=== PATIENT | female | born 1960 | race Caucasian/White ===

== ENCOUNTER 2024-01-26 15:47 | Emergency (ER) | payer OTHER, SELFPAY ==
[2024-01-26] VITALS (17 sets, daily range): BP systolic 109–150; BP diastolic 71–83; PULSE 54–67; RESP 18; TEMP 36.6; O2SAT 95–98; BMI 21.9
--- NOTE | 2024-01-26 15:48 | ED_ITS ---
HPI - General Adult General Date Seen: 01/26/24 Chief complaint: Chest Pain Stated complaint: Tightness in chest/throat Time Seen by Provider: 01/26/24 15:48 History of Present Illness HPI narrative: 63-year-old female with history of hypothyroidism (Synthroid), and dyslipidemia (currently managing with diet and exercise) who presents to the ER today for an episode of substernal chest discomfort and squeezing along with squeezing in her neck. She has been healthy and well lately. No recent symptoms of chest pain, shortness of breath, dyspnea, or any other anginal symptoms. She was at home today working on organizing some papers and cleaning on an office. She was sitting on the floor when she began to have some discomfort in her chest and up into her neck. She has a felt like a squeezing. It was quite intense. She was worried she might be having a heart attack so she when out to notify her . They decided to come here. Pain began around 3:[address] here the pain has gotten better and has now gone from her chest. She had mi nimal ongoing squeezing in her neck at the time of triage but now that, too, has resolved. No other symptoms with this. No palpitations. No shortness of breath. No nausea. No dizziness. No back pain. No abdominal pain. The pain did not radiate up to her jaw or down to her legs or down her arms. No recent travel. No leg swelling. No history of DVT or PE. She does have a family history of vascular disease, in particular her mother, who of strokes. The patient reports that she had a history of mitral valve prolapse with a murmur when she was younger but that murmurs been gone for some years. Related Data Home Medications ?Medication ?Instructions ?Recorded ?Confirmed levothyroxine 50 mcg tablet mcg PO 01/26/24 Allergies Allergy/AdvReac Type Severity Reaction Status Date / Time Sulfa (Sulfonamide Allergy Verified 01/26/24 15:51 Antibiotics) PFSH PFS Social History Smoking Status: Never smoker Do you use any of these nicotine containing products: None How often do you have a drink containing alcohol: never How often do you have six or more drinks on one occasion: Never AUDIT-C Alcohol total score: 0 Non-prescribed substance use: denies use service: No Exam Narrative: Exam Narrative: Constitutional: Appears well-developed and well-nourished. Alert. Conversant. Non toxic. HENT: Head: Atraumatic. Nose: Nose normal. Mouth/Throat: Oral mucosa is clear and moist. no trismus. Pharynx normal. Tonsils symmetric. No tonsillar enlargement, erythema, or exudate. Eyes: Conjunctivae normal. EOM normal. Pupils equal, round, and reactive to light. No scleral icterus. Neck: Normal range of motion. Neck supple. No tracheal deviation present. No JVD Cardiovascular: Normal rate, regular rhythm. No gallop. No friction rub. No murmur heard. Symmetric radial and PT artery pulses Pulmonary/Chest: Effort normal. No stridor. No respiratory distress. No wheezes. No rales. No rhonchi . No tenderness. Abdominal: Soft. Bowel sounds normal. No distension. No mass. No tenderness. No rebound. No guarding. Musculoskeletal: RUE: Normal range of motion. No tenderness. No deformity LUE: Normal range of motion. No tenderness. No deformity RLE: Normal range of motion. No edema. No tenderness. No deformity LLE: Normal range of motion. No edema. No tenderness. No deformity Lymph: No cervical adenopathy. Neurological: Alert and oriented to person, place, and time. Normal strength. CN II-VII intact. No sensory deficit. GCS eye subscore is 4. GCS verbal subscore is 5. GCS motor subscore is 6. Normal coordination Skin: Skin is warm and dry. No rash noted. No pallor. Normal capillary refill. Psychiatric: Normal mood. Normal affect. Const: Vital Signs, click to edit/add: Vital Signs - 24 hr 01/26/24 15:52 01/26/24 16:00 01/26/24 16:02 Temperature 97.9 F Pulse Rate 65 65 Pulse Rate [Pulse Oximeter] 60 Respiratory Rate 18 Blood Pressure 135/81 Blood Pressure [Ri ght Upper Arm] 150/80 H Pulse Oximetry 96 97 96 Oxygen Delivery Me thod Room Air 01/26/24 16:15 01/26/24 16:50 01/26/24 16:53 Temperature Pulse Rate 59 L 63 64 Pulse Rate [Pulse Oximeter] Respiratory Rate Blood Pressure 127/75 Blood Pressure [Ri ght Upper Arm] Pulse Oximetry 98 97 96 Oxygen Delivery Me thod 01/26/24 17:00 01/26/24 17:02 01/26/24 17:15 Temperature Pulse Rate 67 63 58 L Pulse Rate [Pulse Oximeter] Respiratory Rate Blood Pressure 120/71 Blood Pressure [Ri ght Upper Arm] Pulse Oximetry 97 95 97 Oxygen Delivery Me thod 01/26/24 17:30 01/26/24 17:32 01/26/24 17:45 Temperature Pulse Rate 55 L 60 57 L Pulse Rate [Pulse Oximeter] Respiratory Rate Blood Pressure 109/71 Blood Pressure [Ri ght Upper Arm] Pulse Oximetry 95 96 97 Oxygen Delivery Me thod 01/26/24 18:00 01/26/24 18:02 01/26/24 18:15 Temperature Pulse Rate 57 L 56 L 61 Pulse Rate [Pulse Oximeter] Respiratory Rate Blood Pressure 122/75 Blood Pressure [Ri ght Upper Arm] Pulse Oximetry 97 98 98 Oxygen Delivery Me thod 01/26/24 18:30 01/26/24 18:32 Temperature Pulse Rate 56 L 54 L Pulse Rate [Pulse Oximeter] Respiratory Rate Blood Pressure 115/83 Blood Pressure [Ri ght Upper Arm] Pulse Oximetry 97 97 Oxygen Delivery Me thod Course Vital Signs Vital signs: Initial Vital Signs Temperature 97.9 F 01/26/24 15:52 Temperature Source Temporal Artery Scan 01/26/24 15:52 Pulse Rate 60 01/26/24 15:52 Pulse Rhythm Regular 01/26/24 15:52 Respiratory Rate 18 01/26/24 15:52 Blood Pressure 150/80 H 01/26/24 15:52 Blood Pressure Mean 103 01/26/24 15:52 Blood Pressure Position Supine 01/26/24 15:52 Pulse Oximetry 96 01/26/24 15:52 Oxygen Delivery Method Room Air 01/26/24 15:52 Vital Signs Temperature 97.9 F 01/26/24 15:52 Pulse Rate 60 01/26/24 15:52 Respiratory Rate 18 01/26/24 15:52 Blood Pressure 150/80 H 01/26/24 15:52 Pulse Oximetry 96 01/26/24 15:52 Oxygen Delivery Method Room Air 01/26/24 15:52 Temperature 97.9 F 01/26/24 15:52 Pulse Rate 54 L 01/26/24 18:32 Respiratory Rate 18 01/26/24 15:52 Blood Pressure 115/83 01/26/24 18:32 Pulse Oximetry 97 01/26/24 18:32 Oxygen Delivery Method Room Air 01/26/24 15:52 Medications Administered Medications: Discontinued Medications Generic Name Dose Route Start Last Admin Trade Name Abbey PRN Reason Stop Dose Admin Aspirin 162 mg 01/26/24 16:15 01/26/24 16:25 Aspirin 81 Mg Tab.Chew PO 01/26/24 16:16 162 mg ONCE ONE Administration Medical Decision Making MDM Narrative Medical decision making narrative: This patient presents to the ER today for evaluation of chest pain that began this afternoon while she was sitting on the floor cleaning a room. He was not really associated with exertion. No other recent episodes of chest pain or other significant anginal symptoms. Patient has a history of high cholesterol (currently being managed by diet and exercise) and a family history of mother with stroke but no other traditional cardiovascular risk factors. Differential was broad. No evidence of palpitations, syncope or other cardiac dysrhythmia. We considered possible ACS, however workup with EKG and serial troponin is negative. HEART score is 3. Given time since onset of symptoms, we did check delta troponins and they are both normal. I do not think the patient needs to be admitted for further sets of enzymes. EKG shows no evidence for pericarditis. Clinical presentation not suggestive of myocarditis. Chest x-ray shows no evidence for pneumonia, pneumothorax, pulmonary edema, pleural effusion, rib fracture, cardiomegaly. Mediastinum is normal on the x-ray. The patient has no ripping or tearing pain through to the back and has symmetric pulses on exam, no other acute neuro findings so I doubt aortic dissection. Risk of radiation and contrast exposure would outweigh the benefit of CT angiogram. We considered PE for this patient. There is no pleuritic component to the chest pain, tachycardia, hypoxia, or associated shortness of breath. The pain was self limited. No recent travel. No leg swellings or other symptoms of DVT. At this point I do not think she needs workup with CT PA due to risk of radiation and contrast. D-dimer testing would be more likely deal to false-positive than a true positive. No wheezing or bronchospasm to suggest COPD/asthma. No signs of chest wall cellulitis, shingles, injury. I wonder if this may have been an episode of esophageal spasm. With reasonable clinical confidence, I think the patient is safe for outpatient follow up. Discussed return precautions. Questions answered. Patient voices comfort with the plan. Triage blood pressure was 150/80. Came down without treatment to 115/83. Suspect initial blood pressure was related to anxiety and stress during the triage process. Lab Data Labs: Lab Results 01/26/24 01/26/24 01/26/24 Range/Units 16:15 16:30 18:30 WBC 9.78 (4.50-11.00) K/uL RBC 4.67 (4.00-5.20) m/uL Hgb 13.5 (12.0-16.0) gm/dL Hct 40.5 (33.0-51.0) % MCV 87 (80-100) fL MCH 29 (26-34) pg MCHC 33 (32-36) gm/dL RDW Coeff of Kimani 12.4 (11.5-15.5) % Plt Count 294 (140-440) K/uL Neut % (Auto) 64.8 (42.0-72.0) % Lymph % (Auto) 26.4 (20-44) % [place] % (Auto) 7.1 (0.0-11.0) % Eos % (Auto) 1.3 (0.0-7.0) % Baso % (Auto) 0.3 (0.0-3.0) % Neut # (Auto) 6.34 (1.7-7.0) K/uL Lymph # (Auto) 2.58 (0.90-2.90) K/uL Ulster # (Auto) 0.70 (0.00-0.90) K/UL Eos # (Auto) 0.13 (0.00-0.50) K/uL Baso # (Auto) 0.03 (0.00-0.30) K/uL Abs Immat Gran (auto) 0.01 (0.00-0.30) K/uL Imm/Tot Granulo (auto) 0.1 % Sodium 140 (135-149) mmol/L Potassium 3.6 (3.6-5.1) mmol/L Chloride 106 (96-114) mmol/L Carbon Dioxide 25 (20-32) mmol/L Anion Gap 9 (7-15) mEq/L BUN 15 (7-30) mg/dL Creatinine 0.6 (0.5-1.5) mg/dL Estimated Creat Clear 44.95 Estimated GFR 100 ml/min Glucose 114 (60-115) mg/dL Calcium 9.3 (8.4-10.6) mg/dL POC Troponin I 0.00 L 0.00 L (0.01-0.04) ng/ml Imaging Data Chest x-ray: Attestation: I have reviewed the pertinent imaging results. Radiologist's impression: Impression No acute cardiopulmonary process. ECG Data Attestation: I personally reviewed and interpreted this ECG as follows: Interpretation: Normal sinus rhythm Rate: 68 WI: 168 QRS axis: Normal axis. No pathologic Q-waves. ST segment/T wave: No ST segment elevation or depression. Nonspecific T-wave flattening in lead V1, V2, V3. QTc: 455 Discharge Plan Discharge Clinical Impression: Chest pain Patient Disposition: Home, Self-Care Condition: Stable Instructions: Chest Pain (DC) Additional Instructions: As we discussed, so far the workup for your heart looks reassuring. If you have any worsening symptoms or recurring episodes of chest pain, please come back to the ER right away. Even if you are doing well, please recheck with your regular doctor in the next couple of weeks to recheck your cholesterol and do an ER follow-up visit. Prescriptions: No Action levothyroxine 50 mcg tablet PO Follow Up/Referrals: Provider,Not a Local [Primary Care Provider] - Stand Alone Forms: [employer] Info Instructions
--- NOTE | 2024-01-26 16:16 | CRLHL7_ITS ---
For Patients: As a result of the Century Cures Act, medical imaging exams and procedure reports are released immediately into your electronic medical record. You may view this report before your referring provider. If you have questions, please contact your health care provider. Indication chest and neck discomfort Technique Two view(s) of the chest Comparison None Findings The cardiomediastinal silhouette and pulmonary vasculature are unremarkable. There is no focal airspace consolidation, pleural effusion, or pneumothorax. No displaced fractures. Impression No acute cardiopulmonary process. Dictated by Taras Benavides MD @ 01/26/2024 6:07:57 PM (Electronically Signed)
[2024-01-26] MEDS: ASPIRIN 81 MG TAB.CHEW 162 MG PO (16:25)
[2024-01-26 16:55] LABS: Basophils Absolute Auto 0.03 K/uL (0.00-0.30); Basophils Percent Auto 0.3 % (0.0-3.0); Eosinophils Absolute Auto 0.13 K/uL (0.00-0.50); Eosinophils Percent Auto 1.3 % (0.0-7.0); Hematocrit 40.5 % (33.0-51.0); Hemoglobin* 13.5 gm/dL (12.0-16.0); Immature Granulocytes Abs Auto 0.01 K/uL (0.00-0.30); Immature Granulocytes Pct Auto 0.1 %; Lymphocytes Absolute Auto 2.58 K/uL (0.90-2.90); Lymphocytes Percent Auto 26.4 % (20-44); Mean Corpuscular HGB Conc 33 gm/dL (32-36); Mean Corpuscular Hemoglobin 29 pg (26-34); Mean Corpuscular Volume 87 fL (80-100); Monocytes Percent Auto 7.1 % (0.0-11.0); Neutrophils Absolute Auto 6.34 K/uL (1.7-7.0); Neutrophils Percent Auto 64.8 % (42.0-72.0); Platelet Count* 294 K/uL (140-440); RDW Coefficient of Variation % 12.4 % (11.5-15.5); Red Blood Count 4.67 m/uL (4.00-5.20); White Blood Count* 9.78 K/uL (4.50-11.00)
[2024-01-26 17:05] LABS: Slide Review Reflex No
[2024-01-26 17:09] LABS: Chloride* 106 mmol/L (96-114)
[2024-01-26 17:10] LABS: Potassium* 3.6 mmol/L (3.6-5.1); Sodium* 140 mmol/L (135-149)
[2024-01-26 17:12] LABS: Creatinine* 0.6 mg/dL (0.5-1.5); Est. Creatinine Clearance* 44.95; Estimated Glomerular Filt Rate 100 ml/min
[2024-01-26 17:13] LABS: Anion Gap 9 mEq/L (7-15); Blood Urea Nitrogen* 15 mg/dL (7-30); Calcium* 9.3 mg/dL (8.4-10.6); Carbon Dioxide* 25 mmol/L (20-32); Glucose* 114 mg/dL (60-115)
== END 2024-01-26 18:55 | disposition home or self-care (01) ==
PROVIDERS: Emergency Provider Emergency Medicine
DX: R07.9 Chest pain, unspecified (principal)
CPT/HCPCS: 36415; 71046; 80048; 84484; 85025; 93005; 99284; 99285; A9270